=== PATIENT | female | born 1985 | race Caucasian/White ===

== ENCOUNTER 2017-03-24 14:09 | Emergency (ER) | payer OTHER ==
[~2017-03-24 14:09] MED LIST: HYDROCHLOROTH12.5 M2 PO; LAC PO; LIPI20 PO; LORAZEPAM1 MG PO; MAC100 PO; SYNTHROID0.025 MG PO
[2017-03-24 15:07] LABS: BASOPHIL % 0.7 % (0-2); PLATELET COUNT 271 x10^3mcL (130-400); RED CELL DISTRIBUTION WIDTH 12.8 % (11.5-14.5)
[2017-03-24 15:21] LABS: CALCIUM 8.9 mg/dL (8.5-10.1); CARBON DIOXIDE 25.5 mmol/L (21-32); CHLORIDE SERUM 105 mmol/L (98-107); CREATININE SERUM 0.9 mg/dL (0.6-1.0); GFR1 > 60 mL/min; GLUCOSE SERUM 142 mg/dL (74-106); POTASSIUM SERUM 3.9 mmol/L (3.5-5.1); SODIUM SERUM 140 mmol/L (136-145)
[2017-03-24 15:25] LABS: ALBUMIN 3.8 g/dL (3.4-5.0); ALKALINE PHOSPHATASE 99 U/L (46-116); ALT/SGPT 111 U/L (14-59); AMYLASE 48 U/L (25-115); AST/SGOT 84 U/L (15-37); BILIRUBIN TOTAL 0.2 mg/dL (0.20-1.00); LIPASE 214 IU/L (73-393); TOTAL PROTEIN, SERUM 7.3 g/dL (6.4-8.2)
[2017-03-24 17:27] VITALS: BP 129/78
== END 2017-03-24 17:27 | disposition home or self-care (01) ==
LOC: ED 14:09
PROVIDERS: Emergency Medicine
DX: R10.33 Periumbilical pain (principal); R10.13 Epigastric pain; E03.9 Hypothyroidism, unspecified; Z79.899 Other long term (current) drug therapy
CPT/HCPCS: 36415; 83880; J1885; Q0162

== ENCOUNTER 2017-11-24 23:27 | Emergency (ER) | payer OTHER ==
[2017-11-25 01:14] LABS: BASOPHIL % 0.5 % (0-2); PLATELET COUNT 298 x10^3mcL (130-400); RED CELL DISTRIBUTION WIDTH 13.4 % (11.5-14.5)
[2017-11-25 01:15] LABS: UA SPECIFIC GRAVITY 1.025 (1.005-1.035); microscopic required? YES; urine erythrocyte NEGATIVE (NEGATIVE)
[2017-11-25 01:29] LABS: AMPHETAMINE QUAL UR NONE DETECTED (NEG <=1000)
[2017-11-25 01:33] LABS: CARBON DIOXIDE 27.1 mmol/L (21-32); CHLORIDE SERUM 95 mmol/L (98-107); GFR1 > 60 mL/min; GLUCOSE SERUM 139 mg/dL (74-106); POTASSIUM SERUM 3.8 mmol/L (3.5-5.1); SODIUM SERUM 135 mmol/L (136-145)
[2017-11-25 01:46] LABS: ALBUMIN 4.3 g/dL (3.4-5.0); ALKALINE PHOSPHATASE 95 U/L (46-116); ALT/SGPT 179 U/L (14-59); AST/SGOT 120 U/L (15-37); BILIRUBIN TOTAL 0.7 mg/dL (0.20-1.00); FREE T4 0.77 ng/dL (0.76-1.46); LIPASE 90 IU/L (73-393)
[2017-11-25 03:10] VITALS: BP 125/43
== END 2017-11-25 03:10 | disposition left against medical advice (07) ==
LOC: ED 23:27
PROVIDERS: Emergency Medicine
DX: F10.129 Alcohol abuse with intoxication, unspecified (principal); I10 Essential (primary) hypertension; E03.9 Hypothyroidism, unspecified
CPT/HCPCS: 84439; G0480; J3411; J3475; J3490; J7030; Q0092

== ENCOUNTER 2018-12-09 04:48 | Emergency (ER) | payer OTHER ==
[~2018-12-09] VITALS: Ht 177.8 cm; Wt 108.9 kg
[2018-12-09 04:51] VITALS: Ht 177.8 cm; Wt 108.9 kg
[2018-12-09 06:03] VITALS: BP 138/90
== END 2018-12-09 06:03 | disposition home or self-care (01) ==
LOC: ED 04:48
DX: M54.5 Low back pain (principal); I10 Essential (primary) hypertension; E11.9 Type 2 diabetes mellitus without complications; F32.9 Major depressive disorder, single episode, unspecified
CPT/HCPCS: J1885

== ENCOUNTER 2019-12-31 14:51 | Emergency (ER) | payer MEDICAID ==
[~2019-12-31] VITALS: Ht 177.8 cm; Wt 101.6 kg
[~2019-12-31 14:51] MED LIST changes: +ACCU-CHEK1 EAC2 MC; +ATORVASTATIN CA40 M1 PO; +GLUCOPHAGE500 MG PO; +GOOD NEIGHBOR M25 MG PO; +NEU300 PO; +PRI20 PO; -SYNTHROID0.025 MG PO; +SYNTHROID0.075 MG PO; +ZOF4 PO
[2019-12-31 14:59] VITALS: Ht 177.8 cm; Wt 101.6 kg
[2019-12-31 15:48] LABS: BASOPHIL % 0.5 % (0-2); PLATELET COUNT 206 x10^3mcL (130-400); RED CELL DISTRIBUTION WIDTH 12.9 % (11.5-14.5)
[2019-12-31 15:58] LABS: CALCIUM 8.9 mg/dL (8.5-10.1); CARBON DIOXIDE 26.4 mmol/L (21-32); CHLORIDE SERUM 95 mmol/L (98-107); CREATININE SERUM 0.9 mg/dL (0.6-1.0); GFR1 > 60 mL/min; GLUCOSE SERUM 220 mg/dL (74-106); POTASSIUM SERUM 3.5 mmol/L (3.5-5.1); SODIUM SERUM 137 mmol/L (136-145)
[2019-12-31 16:01] LABS: ALBUMIN 3.8 g/dL (3.4-5.0); ALKALINE PHOSPHATASE 104 U/L (46-116); ALT/SGPT 62 U/L (14-59); AST/SGOT 45 U/L (15-37); BILIRUBIN TOTAL 0.3 mg/dL (0.20-1.00); LIPASE 68 IU/L (73-393); MAGNESIUM 1.3 mg/dL (1.8-2.4); TOTAL PROTEIN, SERUM 7.4 g/dL (6.4-8.2)
[2019-12-31 16:18] LABS: AMPHETAMINE QUAL UR NONE DETECTED (See below)
[2019-12-31 17:54] VITALS: BP 139/87
== END 2019-12-31 17:54 | disposition home or self-care (01) ==
LOC: ED 14:51
PROVIDERS: Emergency Medicine
DX: F10.239 Alcohol dependence with withdrawal, unspecified (principal); E11.649 Type 2 diabetes mellitus with hypoglycemia without coma; I10 Essential (primary) hypertension
CPT/HCPCS: 82962; G0480; J2060; J3411; J3490; J7030

== ENCOUNTER 2020-01-10 22:06 | Inpatient (IN) | payer OTHER ==
[~2020-01-10] VITALS: Ht 177.8 cm; Wt 98.0 kg
[2020-01-10 22:11] VITALS: Ht 177.8 cm; Wt 98.0 kg
[2020-01-10 23:25] LABS: BASOPHIL % 0.6 % (0-2); PLATELET COUNT 263 x10^3mcL (130-400); RED CELL DISTRIBUTION WIDTH 13.5 % (11.5-14.5)
[2020-01-10 23:27] LABS: CALCIUM 7.8 mg/dL (8.5-10.1); CARBON DIOXIDE 24.6 mmol/L (21-32); CHLORIDE SERUM 101 mmol/L (98-107); CREATININE SERUM 0.7 mg/dL (0.6-1.0); GFR1 > 60 mL/min; GLUCOSE SERUM 203 mg/dL (74-106); POTASSIUM SERUM 3.5 mmol/L (3.5-5.1); SODIUM SERUM 140 mmol/L (136-145)
[2020-01-10 23:32] LABS: ALBUMIN 3.7 g/dL (3.4-5.0); ALKALINE PHOSPHATASE 87 U/L (46-116); ALT/SGPT 68 U/L (14-59); AST/SGOT 43 U/L (15-37); BILIRUBIN TOTAL 0.3 mg/dL (0.20-1.00); TOTAL PROTEIN, SERUM 6.8 g/dL (6.4-8.2)
[2020-01-11] VITALS (7 sets, daily range): BP systolic 123–149; BP diastolic 82–106
[2020-01-11 00:46] LABS: AMPHETAMINE QUAL UR NONE DETECTED (See below)
[2020-01-11 02:06] LABS: CHOLESTEROL/HDL RATIO 3.1; MAGNESIUM 1.6 mg/dL (1.8-2.4); PHOSPHOROUS 2.2 mg/dL (2.5-4.9)
[2020-01-11 02:11] LABS: T3 TOTAL 0.9 ng/mL
[2020-01-11 02:29] LABS: FREE T4 1.07 ng/dL (0.76-1.46); FREE THYROXINE INDEX 2.1 ug/dL (1.4-4.5); T4(THYROXINE) 6.7 ug/dL (4.7-13.3)
[2020-01-11 07:16] LABS: CALCIUM 7.8 mg/dL (8.5-10.1); CARBON DIOXIDE 27.8 mmol/L (21-32); CHLORIDE SERUM 99 mmol/L (98-107); CREATININE SERUM 0.8 mg/dL (0.6-1.0); GFR1 > 60 mL/min; GLUCOSE SERUM 130 mg/dL (74-106); MAGNESIUM 1.3 mg/dL (1.8-2.4); PHOSPHOROUS 3.1 mg/dL (2.5-4.9); POTASSIUM SERUM 3.4 mmol/L (3.5-5.1); SODIUM SERUM 139 mmol/L (136-145)
[2020-01-11 11:20] LABS: microscopic required? NO
[2020-01-11 11:35] LABS: BASOPHIL % 0.4 % (0-2); PLATELET COUNT 204 x10^3mcL (130-400); RED CELL DISTRIBUTION WIDTH 13.4 % (11.5-14.5)
[2020-01-11 12:06] LABS: UA SPECIFIC GRAVITY 1.025 (1.005-1.035); urine erythrocyte NEGATIVE (NEGATIVE)
[2020-01-12 05:14] VITALS: BP 136/92
[2020-01-12 07:14] LABS: CALCIUM 9.3 mg/dL (8.5-10.1); CARBON DIOXIDE 30.4 mmol/L (21-32); CHLORIDE SERUM 101 mmol/L (98-107); CREATININE SERUM 0.7 mg/dL (0.6-1.0); GFR1 > 60 mL/min; GLUCOSE SERUM 144 mg/dL (74-106); PHOSPHOROUS 5.2 mg/dL (2.5-4.9); POTASSIUM SERUM 4.2 mmol/L (3.5-5.1); SODIUM SERUM 140 mmol/L (136-145)
[2020-01-12 07:27] LABS: BASOPHIL % 0.6 % (0-2); PLATELET COUNT 205 x10^3mcL (130-400); RED CELL DISTRIBUTION WIDTH 13.8 % (11.5-14.5)
[2020-01-12 08:40] VITALS: BP 158/110
[2020-01-12 12:59] VITALS: BP 134/101
[2020-01-12 16:43] VITALS: BP 130/99
[2020-01-12 20:55] VITALS: BP 144/106
[2020-01-12 22:39] VITALS: BP 121/76
[2020-01-13 05:18] VITALS: BP 126/92
[2020-01-13 06:35] LABS: BASOPHIL % 0.5 % (0-2); PLATELET COUNT 187 x10^3mcL (130-400); RED CELL DISTRIBUTION WIDTH 13.5 % (11.5-14.5)
[2020-01-13 06:46] LABS: CALCIUM 9.1 mg/dL (8.5-10.1); CARBON DIOXIDE 27.1 mmol/L (21-32); CHLORIDE SERUM 102 mmol/L (98-107); CREATININE SERUM 0.6 mg/dL (0.6-1.0); GFR1 > 60 mL/min; GLUCOSE SERUM 141 mg/dL (74-106); MAGNESIUM 2.1 mg/dL (1.8-2.4); POTASSIUM SERUM 3.6 mmol/L (3.5-5.1); SODIUM SERUM 140 mmol/L (136-145)
[2020-01-13 08:39] VITALS: BP 139/104
[2020-01-13 12:14] VITALS: BP 138/95
[2020-01-13 16:07] VITALS: BP 99/63
[2020-01-13 20:50] VITALS: BP 135/93
[2020-01-14 05:31] VITALS: BP 107/78
[2020-01-14 07:01] LABS: BASOPHIL % 0.6 % (0-2); PLATELET COUNT 167 x10^3mcL (130-400); RED CELL DISTRIBUTION WIDTH 13.6 % (11.5-14.5)
[2020-01-14 07:30] LABS: CALCIUM 8.6 mg/dL (8.5-10.1); CARBON DIOXIDE 25.5 mmol/L (21-32); CHLORIDE SERUM 103 mmol/L (98-107); CREATININE SERUM 0.6 mg/dL (0.6-1.0); GFR1 > 60 mL/min; GLUCOSE SERUM 137 mg/dL (74-106); POTASSIUM SERUM 3.7 mmol/L (3.5-5.1); SODIUM SERUM 139 mmol/L (136-145)
[2020-01-14 08:30] VITALS: BP 128/85
[2020-01-14] MEDS ORDERED: HYDROCHLOROTH12.5 M2 PO (09:10)
[2020-01-14] MEDS ORDERED: NEU300 PO (09:10)
[2020-01-14] MEDS ORDERED: ZESTRIL5 MG PO (09:11)
[2020-01-14 10:20] VITALS: BP 128/85
== END 2020-01-14 11:45 | disposition home or self-care (01) | DRG 52 ==
LOC: ED 22:06 → DU 01-11 00:34
PROVIDERS: Emergency Medicine; Internal Medicine; ADMIT Family Medicine; ATTEND Family Medicine
DX: G92 Toxic encephalopathy (principal); E11.40 Type 2 diabetes mellitus with diabetic neuropathy, unspecified; F10.129 Alcohol abuse with intoxication, unspecified; E11.65 Type 2 diabetes mellitus with hyperglycemia; E03.9 Hypothyroidism, unspecified; F32.9 Major depressive disorder, single episode, unspecified; I10 Essential (primary) hypertension; Y90.9 Presence of alcohol in blood, level not specified; Z87.891 Personal history of nicotine dependence; R00.0 Tachycardia, unspecified; K21.9 Gastro-esophageal reflux disease without esophagitis; Z79.84 Long term (current) use of oral hypoglycemic drugs; Z83.3 Family history of diabetes mellitus; Z82.49 Family history of ischemic heart disease and other diseases of the circulatory system; I16.0 Hypertensive urgency
CPT/HCPCS: 82962; 84439; G0378; G0480; J1885; J2060; J7030; Q0092

== ENCOUNTER 2020-03-07 19:29 | Inpatient (IN) | payer SELFPAY ==
[~2020-03-07] VITALS: Ht 176.5 cm; Wt 92.1 kg
[~2020-03-07 19:29] MED LIST changes: +ZESTRIL5 MG PO
[2020-03-07 19:41] VITALS: Ht 176.5 cm; Wt 92.1 kg
[2020-03-07 20:28] LABS: PLATELET COUNT 290 x10^3mcL (130-400); RED CELL DISTRIBUTION WIDTH 13.7 % (11.5-14.5)
[2020-03-07 20:31] LABS: CALCIUM 8.9 mg/dL (8.5-10.1); CARBON DIOXIDE 24.3 mmol/L (21-32); CHLORIDE SERUM 99 mmol/L (98-107); CREATININE SERUM 0.9 mg/dL (0.6-1.0); GFR1 > 60 mL/min; GLUCOSE SERUM 137 mg/dL (74-106); POTASSIUM SERUM 4.3 mmol/L (3.5-5.1); SODIUM SERUM 140 mmol/L (136-145)
[2020-03-07 20:45] LABS: BAND NEUTROPHIL 0 % (0-10); BASOPHIL 0 % (0-2); MONOCYTE 4 % (0-7); PLATELET MORPHOLOGY PLATELETS NORMAL; SEGMENTED NEUTROPHILS 51 % (37-75); rbc morphology (normal/abnorm) NORMAL (NORMAL)
[2020-03-07] MEDS ORDERED: NORCO 10-325 T1 EACH PO (23:00)
[2020-03-07 23:13] LABS: MAGNESIUM 2.3 mg/dL (1.8-2.4); PHOSPHOROUS 3.2 mg/dL (2.5-4.9)
[2020-03-07 23:22] LABS: CHOLESTEROL/HDL RATIO 3.5
[2020-03-07 23:23] LABS: FREE T4 0.85 ng/dL (0.76-1.46); T4(THYROXINE) 6.6 ug/dL (4.7-13.3)
[2020-03-08 00:11] LABS: T3 TOTAL 0.69 ng/mL
[2020-03-08 00:42] VITALS: BP 129/98
[2020-03-08 01:01] LABS: UA SPECIFIC GRAVITY >=1.030 (1.005-1.035); microscopic required? YES; urine erythrocyte 1+ (NEGATIVE)
[2020-03-08 01:50] LABS: AMPHETAMINE QUAL UR NONE DETECTED (See below)
[2020-03-08 05:47] VITALS: BP 131/97
[2020-03-08 07:47] LABS: BASOPHIL % 0.2 % (0-2); PLATELET COUNT 215 x10^3mcL (130-400)
[2020-03-08 08:45] LABS: CARBON DIOXIDE 25.2 mmol/L (21-32); CHLORIDE SERUM 97 mmol/L (98-107); CREATININE SERUM 0.8 mg/dL (0.6-1.0); GFR1 > 60 mL/min; GLUCOSE SERUM 141 mg/dL (74-106); MAGNESIUM 1.5 mg/dL (1.8-2.4); PHOSPHOROUS 3.2 mg/dL (2.5-4.9); SODIUM SERUM 138 mmol/L (136-145)
[2020-03-08] MEDS ORDERED: FORTAMET1000 MG PO (08:55)
[2020-03-08 08:56] VITALS: BP 146/106
[2020-03-08 11:01] VITALS: BP 146/106
[2020-03-08 14:02] VITALS: BP 124/88
[2020-03-08 14:04] VITALS: BP 124/88
== END 2020-03-08 14:18 | disposition home or self-care (01) | DRG 92 ==
LOC: ED 19:29 → MU 22:05 → DU 22:05 → MU 03-08 00:01 → DU 03-08 00:41
PROVIDERS: Emergency Medicine; ADMIT Internal Medicine; ATTEND Internal Medicine
DX: G92 Toxic encephalopathy (principal); F10.239 Alcohol dependence with withdrawal, unspecified; E87.2 Acidosis; E11.9 Type 2 diabetes mellitus without complications; E03.9 Hypothyroidism, unspecified; F32.9 Major depressive disorder, single episode, unspecified; F29 Unspecified psychosis not due to a substance or known physiological condition; F17.210 Nicotine dependence, cigarettes, uncomplicated; Y90.0 Blood alcohol level of less than 20 mg/100 ml; E78.1 Pure hyperglyceridemia; R00.0 Tachycardia, unspecified; Z79.84 Long term (current) use of oral hypoglycemic drugs; Z79.899 Other long term (current) drug therapy; Z83.3 Family history of diabetes mellitus; Z82.49 Family history of ischemic heart disease and other diseases of the circulatory system
CPT/HCPCS: 82962; 83880; 84439; G0378; G0480; J1885; J2060; Q0092

== ENCOUNTER 2020-04-24 17:13 | Emergency (ER) | payer MEDICAID ==
[~2020-04-24] VITALS: Ht 177.8 cm; Wt 89.4 kg
[~2020-04-24 17:13] MED LIST changes: +FORTAMET1000 MG PO; +NORCO 10-325 T1 EACH PO
[2020-04-24 17:34] VITALS: Ht 177.8 cm; Wt 89.4 kg
[2020-04-24 19:50] VITALS: BP 159/107
== END 2020-04-24 20:11 | disposition left against medical advice (07) ==
LOC: ED 17:13
DX: Z53.21 Procedure and treatment not carried out due to patient leaving prior to being seen by health care provider (principal)

== ENCOUNTER 2020-07-05 17:43 | Emergency (ER) | payer MEDICAID ==
[~2020-07-05] VITALS: Ht 175.3 cm; Wt 90.7 kg
[2020-07-05 18:02] VITALS: Ht 175.3 cm; Wt 90.7 kg
[2020-07-05 22:52] LABS: CALCIUM 8.5 mg/dL (8.5-10.1); CARBON DIOXIDE 23.3 mmol/L (21-32); CHLORIDE SERUM 97 mmol/L (98-107); CREATININE SERUM 0.8 mg/dL (0.6-1.0); GFR1 > 60 mL/min; GLUCOSE SERUM 120 mg/dL (74-106); POTASSIUM SERUM 3.3 mmol/L (3.5-5.1); SODIUM SERUM 137 mmol/L (136-145)
[2020-07-05 22:53] LABS: BASOPHIL % 0.3 % (0-2); PLATELET COUNT 218 x10^3mcL (130-400)
[2020-07-05 22:54] LABS: RED CELL DISTRIBUTION WIDTH 16.3 % (11.5-14.5)
[2020-07-05 22:59] LABS: ALBUMIN 4.1 g/dL (3.4-5.0); ALKALINE PHOSPHATASE 75 U/L (46-116); ALT/SGPT 41 U/L (14-59); AMYLASE 40 U/L (25-115); AST/SGOT 45 U/L (15-37); BILIRUBIN TOTAL 0.68 mg/dL (0.20-1.00); LIPASE 68 IU/L (73-393); MAGNESIUM 1.6 mg/dL (1.8-2.4); TOTAL PROTEIN, SERUM 7.8 g/dL (6.4-8.2)
[2020-07-06 01:39] VITALS: BP 130/91
== END 2020-07-06 01:39 | disposition home or self-care (01) ==
LOC: ED 17:43
PROVIDERS: Emergency Medicine
DX: F10.239 Alcohol dependence with withdrawal, unspecified (principal); I10 Essential (primary) hypertension; E11.9 Type 2 diabetes mellitus without complications
CPT/HCPCS: J2060; J2405; J3411; J3475; J7030